=== PATIENT | female | born 1970 | race Caucasian/White ===

== ENCOUNTER → 2017-02-28 | Outpatient (CLI) | payer OTHER, MEDICAID | LOC: BMCIMAGING 13:37 | PROVIDERS: ATTEND Podiatrist Foot & Ankle Surgery | DX: S92.502G Displaced unspecified fracture of left lesser toe(s), subsequent encounter for fracture with delayed healing (principal); R93.6 Abnormal findings on diagnostic imaging of limbs; M89.9 Disorder of bone, unspecified; Z18.10 Retained metal fragments, unspecified ==

== ENCOUNTER → 2017-04-25 | Outpatient (CLI) | payer OTHER, MEDICAID | LOC: BMCIMAGING 12:57 | PROVIDERS: ATTEND Podiatrist Foot & Ankle Surgery | DX: S92.502G Displaced unspecified fracture of left lesser toe(s), subsequent encounter for fracture with delayed healing (principal) ==

== ENCOUNTER → 2017-07-18 | Outpatient (CLI) | payer OTHER, MEDICAID | LOC: BRMIMAGING 14:34 | PROVIDERS: ATTEND Internal Medicine | DX: R76.0 Raised antibody titer (principal); M25.40 Effusion, unspecified joint | CPT/HCPCS: 73130-PO ==

== ENCOUNTER → 2018-04-01 | Outpatient (CLI) | payer OTHER, MEDICAID | LOC: FIMAGING 12:56 | PROVIDERS: ATTEND Obstetrics & Gynecology | DX: Z12.31 Encounter for screening mammogram for malignant neoplasm of breast (principal) ==

== ENCOUNTER 2018-07-24 20:23 | Emergency (ER) | payer OTHER, MEDICAID | END 2018-07-25 02:03 | disposition home or self-care (01) ==